=== PATIENT | female | born 1975 | race African-American/Black ===

== ENCOUNTER 2023-02-24 19:19 | Emergency (ER) | payer OTHER, SELFPAY ==
[2023-02-24] MEDS ORDERED: Ketorolac Tromethamine 30 MG/ML VIAL ONE (20:43)
[2023-02-24] MEDS ORDERED: Cyclobenzaprine 10 MG TAB ONE (20:43)
== END 2023-02-24 22:23 | disposition home or self-care (01) ==
LOC: ERS 19:19
DX: M62.830 Muscle spasm of back (principal); E03.9 Hypothyroidism, unspecified; I10 Essential (primary) hypertension; E78.5 Hyperlipidemia, unspecified; Z87.891 Personal history of nicotine dependence; Z79.899 Other long term (current) drug therapy
CPT/HCPCS: 96372; 99283; J1885